=== PATIENT | female | born 1960 | race Caucasian/White ===

== ENCOUNTER 2019-10-02 08:31 | Emergency (ER) | payer MEDICAID, SELFPAY ==
[~2019-10-02] VITALS: Ht 152.4 cm; Wt 68.0 kg
[2019-10-02 08:53] VITALS: BP 108/50
--- NOTE | 2019-10-02 09:02 | NUR ---
Dr. Alfonso is evaluating the patient in the overflow tent.
--- NOTE | 2019-10-02 09:03 | NUR ---
DR SWANSON AT CHAIR SIDE EVALUATING PT.
--- NOTE | 2019-10-02 09:29 | NUR ---
COVID SWAB DONE AND SENT TO LABS.
--- NOTE | 2019-10-02 09:29 | NUR ---
Patient discharged with v/s stable. Written and verbal after care instructions given and explained. Patient verbalized understanding. Ambulatory with steady gait. All questions addressed prior to discharge. Advised to follow up with PMD.
[2019-10-02 09:32] VITALS: BP 108/50
== END 2019-10-02 09:29 | disposition home or self-care (01) ==
LOC: EEVIPCON 08:31 → MED 08:31
DX: J45.909 Unspecified asthma, uncomplicated (principal); Z20.828 Contact with and (suspected) exposure to other viral communicable diseases
CPT/HCPCS: 99283; U0003

== ENCOUNTER 2021-12-19 08:29 | Day surgery (SDC) | payer OTHER ==
[~2021-12-19] VITALS: Ht 160 cm; Wt 77.6 kg
[2021-12-19] MEDS ORDERED: fentaNYL citrate 0.05 MG/ML VIAL ONE (10:46)
[2021-12-19] MEDS ORDERED: LIDOCAINE 2% 100 MG/5 ML UJET TP ONE (10:46)
[2021-12-19] MEDS ORDERED: MIDAZOLAM 2 MG/2 ML VIAL ONE (10:46)
[2021-12-19] MEDS ORDERED: MIDAZOLAM 2 MG/2 ML VIAL IVP ONE (12:00)
[2021-12-19] MEDS ORDERED: fentaNYL citrate 0.05 MG/ML VIAL IVP ONE (12:00)
== END 2021-12-19 12:53 | disposition home or self-care (01) ==
LOC: MDS 08:29 → MMU 08:30 → MDS 12:53
PROVIDERS: ATTEND Internal Medicine Gastroenterology
DX: Z12.11 Encounter for screening for malignant neoplasm of colon (principal); K22.89 Other specified disease of esophagus; K57.30 Diverticulosis of large intestine without perforation or abscess without bleeding; E11.9 Type 2 diabetes mellitus without complications; Z90.49 Acquired absence of other specified parts of digestive tract; Z90.721 Acquired absence of ovaries, unilateral; Z98.51 Tubal ligation status; Z79.899 Other long term (current) drug therapy; Z20.822 Contact with and (suspected) exposure to COVID-19
CPT/HCPCS: 43235; 45378; 87426; J2250; J3010